=== PATIENT | female | born 2000 | race Two or more races ===

== ENCOUNTER 2023-11-07 18:22 | Emergency (ER) | payer MEDICAID ==
[~2023-11-07] VITALS: Ht 162.6 cm; Wt 69.9 kg
[2023-11-07 18:52] VITALS: BP 114/71; TEMP 98.2; O2SAT 100
== END 2023-11-07 21:25 | disposition home or self-care (01) ==
LOC: ER 18:41
DX: R53.1 Weakness (principal); Z88.8 Allergy status to other drugs, medicaments and biological substances